=== PATIENT | male | born 1945 | race Caucasian/White ===

== ENCOUNTER 2018-07-03 22:59 | Emergency (ER) | payer MEDICARE ==
--- NOTE | 2018-07-04 00:06 | NUR ---
DURING TRIAGE, PATIENT STATES HE NOTICED A RED SPOT ON HIS PENIS. PATIENT STATES HE DOES NOT WANT TO WAIT ANY LONGER AND CAN SEE HIS PMD IN THE MORNING. PATIENT THEN LEFT [facility]
== END 2018-07-04 00:08 | disposition left against medical advice (07) ==
LOC: ER 23:01
DX: Z53.21 Procedure and treatment not carried out due to patient leaving prior to being seen by health care provider (principal)